=== PATIENT | female | born 1990 | race Caucasian/White ===

== ENCOUNTER 2021-04-16 11:23 | Outpatient (CLI) | payer BC, SELFPAY ==
--- NOTE | ~2021-04-16 | XR_ITS ---
EXAMINATION: XR chest 2V EXAM DATE: 04/16/2021 11:47 INDICATION: Cough. TECHNIQUE: Frontal and lateral projections of the chest obtained and reviewed. There is no prior ashvin dy for comparison. FINDINGS: There is subsegmental wedge-shaped region of left lower lobe airspace disease, could be at electasis but pneumonia not excludable. The lungs are otherwise clear. There are no pleural effusion s. The cardiomediastinal silhouette is within normal limits. There is no pneumothorax suspected. T he bones and soft tissues are unremarkable. IMPRESSION: Wedge-shaped subsegmental left lower lobe confluent airspace disease; clinical correlatio n. Reviewed, dictated and finalized at location B. GLE CUTTER IMPRESSION: Wedge-shaped subsegmental left lower lobe confluent airspace diseas e; clinical correlation.
== END 2021-04-16 11:24 | disposition home or self-care (01) ==
PROVIDERS: PCP Family Medicine; Visit Provider Family Medicine
DX: R05.9 Cough, unspecified (principal); R91.8 Other nonspecific abnormal finding of lung field
CPT/HCPCS: 71046

== ENCOUNTER 2022-02-25 13:48 | Emergency (ER) | payer BC, SELFPAY ==
--- NOTE | ~2022-02-25 | US_ITS ---
EXAMINATION: US OB follow up DATE: 02/25/2022 15:55 INDICATION: Abdominal cramping. TECHNIQUE: Real-time ultrasound of the pelvis was performed. COMPARISON: None. FINDINGS: There is a single living fetus in vertex presentation. The placenta is posterior. The cervical lengt h is normal on transabdominal images. heart rate is 146 beats per minute (bpm). The amniotic fl uid volume is subjectively normal. The ovaries are not visualized. The following biometric data were obtained: Biparietal diameter (BPD): 4.1 cm; head circumference (HC): 15.1 cm; abdominal circumference (AC): 14 .2 cm; femur length (FL): 2.6 cm. These measurements are discordant with HC/AC < 5th percentile. Estimated weight is 253 g +/- 38 g, which correlates with the 28th percentile when 07/22/22 is u sed as estimated date of delivery. As single measurements, these parameters are each equal to the following estimated gestational ages w ith ranges of +/- 2 standard deviations: BPD: 18 weeks 2 days. HC: 18 weeks 1 days. AC: 19 weeks 4 days. FL: 17 weeks 6 days. estimated gestational age based solely on measurements from this exam is 18 weeks 3 days +/- 1 weeks 2 days. IMPRESSION: 1. Single living fetus in vertex presentation. 2. Estimated weight is 253 g +/- 38 g, which correlates with the 28th percentile when 07/22/22 is used as estimated date of delivery. 3. Discordant biometrics with low HC/AC. Reviewed, dictated and finalized at location A. IMPRESSION: 1. Single living fetus in vertex presentation. 2. Estimated weight is 253 g +/- 38 g, which correlates with the 28th pe rcentile when 07/22/22 is used as estimated date of delivery. 3. Discordant biometrics with low HC/AC.
[2022-02-25 14:16] VITALS: BP 148/78; PULSE 99; RESP 18; TEMP 36.6; O2SAT 100
--- NOTE | 2022-02-25 15:24 | ED.ABDPAIN ---
HPI - Abdominal Pain General Chief Complaint: Abdominal Pain Stated Complaint: abd pain, 19 weeks pg Time Seen by Provider: 02/25/22 15:07 History of Present Illness HPI narrative: Patient is a 31-year-old female who is G3, P2, currently 19 weeks , here for evaluation of lower abdominal cramping over the past week. Patient states the pain is intermittent in nature, comes on without warning. She thought she was constipated, was taking MiraLAX daily and had no relief. Has also been taking Tylenol without significant relief of her pain. No fevers, chills, nausea, vomiting. Spoke with her [employer], Dr. Quevedo, who recommended ED eval. Related Data Allergies Allergy/AdvReac Type Severity Reaction Status Date / Time Penicillins Allergy Rash Verified 02/25/22 14:21 Review of Systems Review of Systems: Gen: Denies fevers or chills Eyes: Denies eye pain or visual change ENT: Denies congestion Respiratory: Denies shortness of breath or cough CV: Denies chest pain or palpitations GI: Reports lower abdominal pain. Denies nausea, emesis or diarrhea denies burning, urgency, frequency or hematuria Musculoskeletal: Denies back pain or muscle pain Neuro: Denies numbness, tingling, weakness or focal weakness Skin: Denies rash Except as documented, all other systems reviewed and negative [facility] Family History Family History (Updated 12/24/15 @ 14:13 by DOCTOR UNKNOWN) Father Hypertension Mother Hypertension Family history of seizure disorder Social History Social History Smoking status: Never smoker Alcohol intake: never Exam Narrative: APPEARANCE: Well appearing, no pain in distress, well-nourished. Head: Normocephalic and atraumatic. EYES: PERRLA/EOMI, conjunctivae clear NOSE: No nasal drainage EARS: External ear normal in appearance THROAT: Oropharynx is clear. Mucous membranes are moist. NECK: Supple. No adenopathy, no masses. RESPIRATORY: Airway patent, respirations nonlabored. Clear to auscultation bilaterally, no rales, rhonchi, wheezing. CARDIOVASCULAR: Regular rate and rhythm without murmurs, rubs, or gallops. ABDOMINAL: Gravid uterus. Normoactive bowel sounds. Soft, nontender, nondistended. No rebound tenderness or guarding. MUSCULOSKELETAL: Extremities are warm and well-perfused. Moves all extremities well. No edema. : NEURO: Normal speech. No focal neurologic deficits. SKIN: Skin is warm and dry. No rashes. PSYCHIATRIC: Normal affect/mood. Course Consultations Consultation #1: Spoke with Dr. Quevedo, patient's [employer], regarding patient's work-up here, will follow-up in office next week, gave return precautions to patient Vital Signs Vital signs: Vital Signs Temperature 97.8 F 02/25/22 14:16 Pulse Rate 99 02/25/22 14:16 Respiratory Rate 18 02/25/22 14:16 Blood Pressure 148/78 H 02/25/22 14:16 Pulse Oximetry 100 02/25/22 14:16 Temperature 97.1 F L 02/25/22 17:37 Pulse Rate 79 02/25/22 17:37 Respiratory Rate 18 02/25/22 17:37 Blood Pressure 159/92 H 02/25/22 17:37 Pulse Oximetry 97 02/25/22 17:37 MDM - Abdominal Pain MDM Narrative Medical decision making narrative: 31-year-old G3, P2 female who is currently 19 weeks here for evaluation of lower abdominal discomfort and cramping over the past week. No vaginal bleeding, suggestion fluids, pain that she likens to contractions. She is nontoxic-appearing and has no abdominal tenderness on exam, heart tones detected. Ultrasound shows a live IUP. She does have a leukocytosis to 13.3, unclear etiology of this. her urine is normal. Spoke with Dr. Quevedo, patient's [employer], who is comfortable with outpatient follow-up which I agree with as patient is nontoxic-appearing. Patient is agreeable to plan; we did discuss return precautions. Lab Data Result diagrams: 02/25/22 15:42 02/25/22 15:42 Labs: Lab Results 02/25/22 02/25/22 02/25/22 Range/Units 15:42 15:
[2022-02-25 15:48] LABS: Basophils Absolute Auto 0.1 K/mm3 (0.0-0.1); Basophils Percent Auto 0.4 % (0.2-1.2); Eosinophils Absolute Auto 0.1 K/mm3 (0-0.3); Eosinophils Percent Auto 0.6 % (0-4.4); Hematocrit 42.6 % (37.0-47.0); Hemoglobin 14.2 g/dL (12.0-15.0); Immature Granulocyte Absolute 0.08 K/mm3 (0.00-0.031); Immature Granulocyte Percent A 0.6 % (0-0.5); Lymphocytes Absolute Auto 1.77 K/mm3 (0.9-3.2); Lymphocytes Percent Auto 13.3 % (18.3-44.2); Mean Corpuscular HGB Conc 33.3 g/dl (32-36); Mean Corpuscular Hemoglobin 29.3 pg (26-34); Monocytes Absolute Auto 0.6 K/mm3 (0.1-0.6); Monocytes Percent Auto 4.2 % (2.6-8.5); Neutrophils Absolute Auto 10.8 K/mm3 (1.3-6.7); Neutrophils Percent Auto 80.9 % (45.5-73.1); Platelet Count Result 285 k/mm3 (150-375); Red Blood Count 4.84 M/mm3 (4.2-5.4); Red Cell Distribution Width 13.2 % (11.5-14.5); White Blood Count 13.3 K/mm3 (4.5-10.0)
[2022-02-25 16:00] LABS: Alanine Aminotransferase 19 U/L (6-35); Albumin Level 4.6 g/dL (3.5-5.1); Alkaline Phosphatase 109 U/L (38-126); Anion Gap 19 mmol/L (8-16); Aspartate Amino Transferase 19 U/L (14-36); Bilirubin,Total 0.4 mg/dL (0.2-1.3); Blood Urea Nitrogen 8 mg/dL (7-17); Calcium 9.9 mg/dL (8.4-10.2); Carbon Dioxide 20 mmol/L (22-30); Chloride 102 mmol/L (98-107); Estimated CRCL calculation 137 ml/min; Estimated Glomerular Filt Rate > 60; Glucose 82 mg/dL (65-110); Potassium 3.3 mmol/L (3.4-5.0); Sodium 141 mmol/L (137-145)
[2022-02-25 16:57] LABS: Add Urine Microscopic? NO; Appearance Urine Clear (Clear); Bilirubin Urine Negative (Negative); Blood Urine Negative (Negative); Color Urine Colorless (Yellow); Glucose Urine UA Negative (Negative); Ketones Urine Negative (Negative); Leukocyte Esterase Ur Negative LEU/UL (Negative); Nitrate Urine Negative (Negative); Protein Urine Negative (Negative); Urobilinogen Urine Negative mg/dL (<2.0)
[2022-02-25 17:04] LABS: Specific Grav Ur 1.002 (1.001-1.035)
[2022-02-25 17:37] VITALS: BP 159/92; PULSE 79; RESP 18; TEMP 36.2; O2SAT 97
[2022-02-25] MEDS: RHO(D) IMMUNE GLOBULIN 300 MCG/2 ML SYRINGE IM (17:42)
== END 2022-02-25 17:51 | disposition home or self-care (01) ==
PROVIDERS: Physician Assistant; Emergency Provider Emergency Medicine; PCP Student in an Organized Health Care Education/Training Program
DX: R10.30 Lower abdominal pain, unspecified (principal); O26.892 Other specified pregnancy related conditions, second trimester; Z3A.19 19 weeks gestation of pregnancy
CPT/HCPCS: 36415; 76816; 80053; 81003; 84702; 85025; 85461; 90384; 96372; 99284; J2790

== ENCOUNTER 2022-05-01 08:17 | Outpatient (RCR) | payer BC, SELFPAY ==
[2022-04-29 12:34] LABS: Hematocrit 37.8 % (37.0-47.0); Hemoglobin 12.5 g/dL (12.0-15.0)
[2022-04-29 12:47] LABS: Glucose 1 Hour PP 50gm Dose 139 mg/dL
[2022-04-29 13:30] LABS: HIV 1/2 Ab P24 Ag Result Negative (Negative)
[2022-05-01] MEDS: RHO(D) IMMUNE GLOBULIN 300 MCG/2 ML SYRINGE IM (14:04)
== END 2022-05-01 09:00 | disposition home or self-care (01) ==
LOC: ANHLAB 08:17
PROVIDERS: PCP Student in an Organized Health Care Education/Training Program; Visit Provider Advanced Practice Midwife
DX: Z11.4 Encounter for screening for human immunodeficiency virus [HIV] (principal); Z29.13 Encounter for prophylactic Rho(D) immune globulin; O36.0130 Maternal care for anti-D [Rh] antibodies, third trimester, not applicable or unspecified; Z3A.00 Weeks of gestation of pregnancy not specified
CPT/HCPCS: 36415; 82947; 85014; 85018; 85461; 86703; 86850; 86880; 86900; 86901; 90384; 96372; G0432; J2790

== ENCOUNTER 2022-05-27 16:39 | Outpatient (CLI) | payer BC, SELFPAY ==
[2022-05-27] VITALS (11 sets, daily range): BP systolic 115–123; BP diastolic 62–85; PULSE 74–89; BMI 42.9
[2022-05-27 17:56] LABS: Creatinine Urine 30.2 mg/dL; Total Protein Urine Random 7 mg/dL; Ur Ttl Prot Creatinine Ratio 0.23 mg/mg (0-0.20)
[2022-05-27 18:07] LABS: Basophils Percent Auto 0.4 % (0.2-1.2); Eosinophils Absolute Auto 0.1 K/mm3 (0-0.3); Eosinophils Percent Auto 1.2 % (0-4.4); Hematocrit 39.2 % (37.0-47.0); Hemoglobin 13.1 g/dL (12.0-15.0); Immature Granulocyte Absolute 0.05 K/mm3 (0.00-0.031); Immature Granulocyte Percent A 0.5 % (0-0.5); Lymphocytes Absolute Auto 1.64 K/mm3 (0.9-3.2); Lymphocytes Percent Auto 15.9 % (18.3-44.2); Mean Corpuscular HGB Conc 33.4 g/dl (32-36); Mean Corpuscular Hemoglobin 29.6 pg (26-34); Mean Corpuscular Volume 88.7 fl (80-100); Mean Platelet Volume 9.2 fl (7.4-10.4); Monocytes Absolute Auto 0.5 K/mm3 (0.1-0.6); Platelet Count Result 242 k/mm3 (150-375); Red Blood Count 4.42 M/mm3 (4.2-5.4); Red Cell Distribution Width 13.2 % (11.5-14.5); White Blood Count 10.3 K/mm3 (4.5-10.0)
[2022-05-27 18:10] LABS: Appearance Urine Clear (Clear); Bilirubin Urine Negative (Negative); Blood Urine Negative (Negative); Color Urine Yellow (Yellow); Glucose Urine UA Negative (Negative); Ketones Urine 2+ mg/dL (Negative); Leukocyte Esterase Ur Negative LEU/UL (Negative); Mucus Urine Rare /lpf; Nitrate Urine Negative (Negative); Protein Urine Negative (Negative); RBC Urine 0-2 /hpf (0-2); Specific Grav Ur 1.015 (1.001-1.035); Squamous Epithelial Cell Urine Occasional /hpf (Few); Urobilinogen Urine 0.2 mg/dL (<2.0); WBC Urine 0-3 /hpf; pH Urine 5.5 (5.0-9.0)
[2022-05-27 18:11] LABS: Add Urine Microscopic? YES
[2022-05-27 18:15] LABS: Alanine Aminotransferase 17 U/L (6-35); Albumin Level 3.3 g/dL (3.5-5.1); Alkaline Phosphatase 111 U/L (38-126); Anion Gap 7 mmol/L (8-16); Aspartate Amino Transferase 20 U/L (14-36); Bilirubin,Total 0.4 mg/dL (0.2-1.3); Blood Urea Nitrogen 10 mg/dL (7-17); Calcium 8.9 mg/dL (8.4-10.2); Carbon Dioxide 20 mmol/L (22-30); Chloride 109 mmol/L (98-107); Estimated CRCL calculation 182 ml/min; Estimated Glomerular Filt Rate > 60; Glucose 72 mg/dL (65-110); Potassium 3.8 mmol/L (3.4-5.0); Sodium 136 mmol/L (137-145); Uric Acid 4.4 mg/dL (2.5-7.5)
== END 2022-05-27 19:23 | disposition home or self-care (01) ==
LOC: ANHOBOP 16:45 → ANHOBPP 16:45
PROVIDERS: Advanced Practice Midwife; PCP Student in an Organized Health Care Education/Training Program; Visit Provider Obstetrics & Gynecology
DX: O13.9 Gestational [pregnancy-induced] hypertension without significant proteinuria, unspecified trimester (principal); Z3A.00 Weeks of gestation of pregnancy not specified
CPT/HCPCS: 36415; 59025; 80053; 81001; 82570; 84156; 84550; 85025; 99199

== ENCOUNTER 2022-07-01 05:37 | Inpatient (IN) | payer BC, SELFPAY ==
[2022-07-01] VITALS (109 sets, daily range): BP systolic 108–160; BP diastolic 46–107; PULSE 55–185; TEMP 36.3–36.6; O2SAT 96–100; BMI 43.5
[2022-07-01 07:20] LABS: Glucose Point of Care 78 mg/dl (65-105)
[2022-07-01 07:24] LABS: Basophils Percent Auto 0.2 % (0.2-1.2); Eosinophils Absolute Auto 0.1 K/mm3 (0-0.3); Eosinophils Percent Auto 1.2 % (0-4.4); Hematocrit 38.5 % (37.0-47.0); Hemoglobin 12.6 g/dL (12.0-15.0); Immature Granulocyte Absolute 0.04 K/mm3 (0.00-0.031); Immature Granulocyte Percent A 0.4 % (0-0.5); Lymphocytes Absolute Auto 1.59 K/mm3 (0.9-3.2); Lymphocytes Percent Auto 17.8 % (18.3-44.2); Mean Corpuscular HGB Conc 32.7 g/dl (32-36); Mean Corpuscular Hemoglobin 28.3 pg (26-34); Mean Corpuscular Volume 86.5 fl (80-100); Mean Platelet Volume 10.2 fl (7.4-10.4); Monocytes Absolute Auto 0.6 K/mm3 (0.1-0.6); Monocytes Percent Auto 6.6 % (2.6-8.5); Neutrophils Absolute Auto 6.6 K/mm3 (1.3-6.7); Neutrophils Percent Auto 73.8 % (45.5-73.1); Platelet Count Result 246 k/mm3 (150-375); Red Blood Count 4.45 M/mm3 (4.2-5.4); Red Cell Distribution Width 13.2 % (11.5-14.5); White Blood Count 8.9 K/mm3 (4.5-10.0)
[2022-07-01] MEDS: OXYTOCIN 30 UNITS/NS 500 ML 30 UNITS/500 ML BAG IV CONT (07:25)
[2022-07-01] MEDS: LACTATED RINGERS 1,000 ML 125 ML IV CONT ×2 (07:25→16:03)
[2022-07-01 07:43] LABS: Uric Acid 5.7 mg/dL (2.5-7.5)
--- NOTE | 2022-07-01 08:42 | WPDANESEPP ---
Anes - Eval Pre Procedure Procedure: labor pain management Date/Time: 07/01/22 08:42 Surgeon: Emy Preop Diagnosis: pain during labor Pre Op Diagnosis: IOL Patient Data Age: 31 Gender: F Height: 1.55 m Weight: 104.5 kg Last Vital Signs Temp 97.3 F L 07/01/22 08:00 Pulse 74 07/01/22 08:31 BP 139/71 07/01/22 08:31 O2 Del Method Room Air 07/01/22 06:49 Allergies Allergy/AdvReac Type Severity Reaction Status Date / Time bee venom protein (honey bee) Allergy Difficulty Verified 06/27/22 12:27 Breathing metoclopramide [From Reglan] Allergy Dizziness Verified 06/27/22 12:27 Penicillins Allergy Rash Verified 02/25/22 14:21 Home Medications Medication Instructions Recorded Confirmed Type aspirin 81 mg capsule 81 mg PO DAILY 05/27/22 07/01/22 History insulin NPH isoph U-100 human 100 14 unit subcut HS 05/27/22 07/01/22 History unit/mL subcutaneous suspension (Humulin N NPH U-100 Insulin (isophane susp)) vit no.95-ferrous 1 tablet PO DAILY 05/27/22 07/01/22 History fumarate 28 mg-folic acid 800 mcg tablet () Laboratory Tests 07/01/22 07/01/22 07/01/22 06:31 06:31 06:31 WBC 8.9 K/mm3 K/mm3 (4.5-10.0) RBC 4.45 M/mm3 M/mm3 (4.2-5.4) Hgb 12.6 g/dL g/dL (12.0-15.0) Hct 38.5 % % (37.0-47.0) MCV 86.5 fl fl (80-100) MCH 28.3 pg pg (26-34) MCHC 32.7 g/dl g/dl (32-36) RDW 13.2 % % (11.5-14.5) Plt Count 246 k/mm3 k/mm3 (150-375) MPV 10.2 fl fl (7.4-10.4) Immature Gran % (Auto) 0.4 % % (0-0.5) Neut % (Auto) 73.8 % H % (45.5-73.1) Lymph % (Auto) 17.8 % L % (18.3-44.2) Sierra % (Auto) 6.6 % % (2.6-8.5) Eos % (Auto) 1.2 % % (0-4.4) Baso % (Auto) 0.2 % % (0.2-1.2) Lymph # (Auto) 1.59 K/mm3 K/mm3 (0.9-3.2) Sierra # (Auto) 0.6 K/mm3 K/mm3 (0.1-0.6) Eos # (Auto) 0.1 K/mm3 K/mm3 (0-0.3) Baso # (Auto) 0.0 K/mm3 K/mm3 (0.0-0.1) Abs Immat Gran (auto) 0.04 K/mm3 H K/mm3 (0.00-0.031) Absolute Neuts (auto) 6.6 K/mm3 K/mm3 (1.3-6.7) Absolute Nucleated RBC 0.0 K/mm3 K/mm3 (0.0-0.012) Nucleated RBC % 0.0 % % (0.0-0.2) POC Capillary Glucose Uric Acid 5.7 mg/dL mg/dL (2.5-7.5) RPR Pending Blood Type Antibody Screen 07/01/22 07/01/22 06:31 07:12 WBC RBC Hgb Hct MCV MCH MCHC RDW Plt Count MPV Immature Gran % (Auto) Neut % (Auto) Lymph % (Auto) Sierra % (Auto) Eos % (Auto) Baso % (Auto) Lymph # (Auto) Sierra # (Auto) Eos # (Auto) Baso # (Auto) Abs Immat Gran (auto) Absolute Neuts (auto) Absolute Nucleated RBC Nucleated RBC % POC Capillary Glucose 78 mg/dl mg/dl (65-105) Uric Acid RPR Blood Type O Negative Antibody Screen Pending Patient hx anesthesia problems: none Family hx anesthesia problems: none Results Review: All pre-operative results and documents have been reviewed as part of the pre-operative evaluation. [facility] Past Medical History Medical History Morbid obesity with BMI of 40.0-44.9, adult Family History Family History Father Hypertension Mother Hypertension Family history of seizure disorder Social History Social History Smoking status: Never smoker Alcohol intake: never Substance use: never Lack of Transportation: No Lack of Food: Never True Current Hous
[2022-07-01 09:16] LABS: Glucose Point of Care 130 mg/dl (65-105)
--- NOTE | 2022-07-01 10:07 | WPDHPUPDATE1 ---
History and Physical Update Update Date/Time: 07/01/22 10:07 31-year-old female, multiparous, who presents for medical induction of labor. Artificial rupture membranes was performed. Fluid clear. Cervix is 3 cm 50% and -2 station. There is reassuring heart tones. Expectant management will be continued. History and Physical has been reviewed, including an updated exam of the patient. There are NO changes in the patient's condition. Risks, benefits, and alternatives have been discussed and questions answered. Patient agrees to proceed with procedure.
[2022-07-01 11:57] LABS: Rapid Plasma Reagin Non-Reactive (NonReactive)
[2022-07-01] MEDS: fentaNYL CITRATE INJ (*CRX) 100 MCG/2 ML VIAL 50 MCG IV PUSH ×2 (13:12→16:04)
[2022-07-01 14:11] LABS: Glucose Point of Care 77 mg/dl (65-105)
[2022-07-01 16:15] LABS: Glucose Point of Care 72 mg/dl (65-105)
[2022-07-01 18:17] LABS: Glucose Point of Care 69 mg/dl (65-105)
--- NOTE | 2022-07-01 20:38 | P.PCNOB_ITS ---
OB - Delivery Note Procedure Delivery date: 07/01/22 Procedure: Induction method: AROM and Per Pitocin Protocol Delivery monitor: External FHT and External Uterine Route of delivery: Laceration Description: Perineal - 2nd Degree Delivery repair: vicryl Quantitative Blood Loss (ml): 350 Anesthesia type: Epidural Disposition: Floor [place] Baby Date of : 07/01/22 Time of : 20:12 Weeks of gestation at delivery: 39 Infant gender: Male Weight (pounds): 6 Weight (ounces): 12 Placenta delivery description: Spontaneous Cord Vessel Description: 3 Vessels score one minute: 8 score five minutes: 9
[2022-07-01] MEDS: OXYTOCIN 30 UNITS/NS 500 ML 30 UNITS/500 ML BAG 125 UNITS IV CONT (20:56)
--- NOTE | 2022-07-01 22:12 | PM.GYNPNOP ---
[employer] - A/P Time Spent With Patient Time: Total time spent is greater than 50% in coordination of care (as documented) at patient's floor/unit and/or counseling patient: Time with patient: less than 15 minutes [employer] CH[employer]ER- PN:Mechelle Post-Op Subjective Date/time seen: 07/01/22 22:12 Uterine exploration manually. Small number of clots were removed. Some very small clots remained at the very most fundal aspect of the intrauterine cavity. no excessive bleeding at this time. [employer] CH[employer]ER - PN: Obj Data Vital Signs Vital Signs: Vital Signs - 24 hr 07/01/22 06:49 07/01/22 07:33 07/01/22 07:46 Temperature Pulse Rate 68 70 Blood Pressure 129/78 135/82 Pulse Oximetry Oxygen Delivery Room Air 07/01/22 08:01 07/01/22 08:00 07/01/22 08:16 Temperature 97.3 F L Pulse Rate 71 68 Blood Pressure 134/80 138/76 Pulse Oximetry Oxygen Delivery 07/01/22 08:31 07/01/22 08:46 07/01/22 09:01 Temperature Pulse Rate 74 62 63 Blood Pressure 139/71 134/65 129/79 Pulse Oximetry Oxygen Delivery 07/01/22 09:55 07/01/22 10:01 07/01/22 10:17 Temperature Pulse Rate 64 65 55 L Blood Pressure 146/78 H 135/64 110/65 Pulse Oximetry Oxygen Delivery 07/01/22 10:31 07/01/22 10:46 07/01/22 11:01 Temperature Pulse Rate 67 57 L 66 Blood Pressure 120/72 122/66 132/73 Pulse Oximetry Oxygen Delivery 07/01/22 11:16 07/01/22 11:32 07/01/22 11:46 Temperature Pulse Rate 78 58 L 59 L Blood Pressure 121/79 123/76 121/107 H Pulse Oximetry Oxygen Delivery 07/01/22 14:05 07/01/22 12:01 07/01/22 14:47 Temperature 97.4 F L Pulse Rate 65 73 Blood Pressure 147/64 H 115/49 L Pulse Oximetry Oxygen Delivery 07/01/22 14:00 07/01/22 16:34 07/01/22 16:35 Temperature 97.5 F L Pulse Rate 62 Blood Pressure 160/83 H Pulse Oximetry 98 Oxygen Delivery 07/01/22 16:39 07/01/22 16:42 07/01/22 16:43 Temperature Pulse Rate 60 Blood Pressure 158/71 H Pulse Oximetry 99 100 Oxygen Delivery 07/01/22 16:43 07/01/22 16:45 07/01/22 16:47 Temperature Pulse Rate 67 68 Blood Pressure 141/71 H 134/65 Pulse Oximetry 100 Oxygen Delivery 07/01/22 16:48 07/01/22 16:49 07/01/22 16:51 Temperature Pulse Rate 69 81 Blood Pressure 133/70 140/64 Pulse Oximetry 100 Oxygen Delivery 07/01/22 16:53 07/01/22 16:56 07/01/22 16:57 Temperature Pulse Rate 86 81 68 Blood Pressure 123/65 109/59 L 120/51 L Pulse Oximetry 100 Oxygen Delivery 07/01/22 16:58 07/01/22 16:59 07/01/22 17:01 Temperature Pulse Rate 66 75 Blood Pressure 118/54 L 114/71 Pulse Oximetry 99 Oxygen Delivery 07/01/22 17:03 07/01/22 17:05 07/01/22 17:07 Temperature Pulse Rate 64 110 H 126 H Blood Pressure 117/57 L 122/65 113/63 Pulse Oximetry 100 Oxygen Delivery 07/01/22 17:08 07/01/22 17:09 07/01/22 17:11 Temperature Pulse Rate 71 185 H Blood Pressure 129/60 135/77 Pulse Oximetry 100 Oxygen Delivery 07/01/22 17:13 07/01/22 16:00 07/01/22 10:00 Temperature 97.6 F 97.4 F L Pulse Rate Blood Pressure Pulse Oximetry 100 Oxygen Delivery 07/01/22 17:18 07/01/22 17:21 07/01/22 17:23 Temperature Pulse Rate 63 Blood Pressure 125/59 L Pulse Oximetry 100 100 Oxygen Delivery 07/01/22 17:28 07/01/22 17:33 07/01/22 17:38 Temperature Pulse Rate Blood Pressure Pulse Oximetry 100 100 100 Oxygen Delivery 07/01/22 17:43 07/01/22 17:46 07/01/22 17:48 Temperature Pulse Rate 78 Blood Pressure 136/74 Pulse Oximetry 100 100 Oxygen Delivery 07/01/22 17:53 07/01/22 17:58 07/01/22 18:02 Temperature Pulse Rate 87 Blood Pressure 127/46 L Pulse Oximetry 100 100 Oxygen Delivery 07/01/22 18:03 07/01/22 18:08 07/01/22 18:13 Temperature Pulse Rate Blood Pressure Pulse Oximetry 100 100 100 Oxygen Delivery 07/01/22 18:17 07/01/22 18:18
--- NOTE | 2022-07-01 23:05 | PC.NURSE ---
Patient transferred to post room #287 per wheelchair from labor and delivery. Support person present. Oriented to unit, room, information board, rooming in, admission packet and security measures. Patient verbalizes understanding.
[2022-07-02] VITALS (7 sets, daily range): BP systolic 115–141; BP diastolic 55–75; PULSE 60–80; RESP 14–18; TEMP 36.4–37.3; O2SAT 97–100
[2022-07-02] MEDS: IBUPROFEN 600 MG TABLET PO ×3 (05:32→21:34)
--- NOTE | 2022-07-02 08:10 | PM.OBPNVD ---
OB - PN: Subj Subjective Date/time seen: 07/02/22 08:10 Patient comments: no complaints, pain well controlled, incisional pain, tolerating diet and flatus present OB - PN: Obj Data Labs 07/01/22 06:31 Labs: Laboratory Results - last 24 hr 07/01/22 07/01/22 07/01/22 06:31 06:31 09:13 POC Capillary Glucose 130 H RPR Non-reactive Blood Type O Negative Antibody Screen Positive Antibody Identification Inconclusive Antigen Identification Cancelled SEVEN, IgG Interpret Not Performed SEVEN, Poly Interpret Negative SEVEN, Complement Interp Not Performed 07/01/22 07/01/22 07/01/22 14:03 16:11 18:14 POC Capillary Glucose 77 72 69 RPR Blood Type Antibody Screen Antibody Identification Antigen Identification SEVEN, IgG Interpret SEVEN, Poly Interpret SEVEN, Complement Interp OB - PN A/P Plan day: 1 Plan: routine care Comments: No problems, routine care Time Spent With Patient Time: Total time spent is greater than 50% in coordination of care (as documented) at patient's floor/unit and/or counseling patient: Exam Const: General: comfortable, no acute distress and alert Resp: Effort & Inspection: normal respiratory effort Auscultation: no crackles, no rales and no rhonchi Cardio: Rate: regular rate Heart sounds: no click, no murmurs and no rubs GI: Inspection: non-distended GI Palp: No Tenderness to palpation present (GI) Auscultation: normal bowel sounds Other: Incision - CDI Extrem: General: normal to inspection, no pedal edema and no calf tenderness
[2022-07-02] MEDS: MULTIVIT/MIN/PREN/FOL AC/IRON TABLET 1 TAB PO (08:53)
[2022-07-02 09:02] LABS: Hematocrit 28.1 % (37.0-47.0); Hemoglobin 9.2 g/dL (12.0-15.0)
[2022-07-02 09:11] LABS: Alanine Aminotransferase 16 U/L (6-35); Albumin Level 2.7 g/dL (3.5-5.1); Alkaline Phosphatase 100 U/L (38-126); Anion Gap 3 mmol/L (8-16); Aspartate Amino Transferase 21 U/L (14-36); Bilirubin,Total 0.4 mg/dL (0.2-1.3); Blood Urea Nitrogen 6 mg/dL (7-17); Calcium 7.9 mg/dL (8.4-10.2); Carbon Dioxide 22 mmol/L (22-30); Chloride 107 mmol/L (98-107); Estimated CRCL calculation 151 ml/min; Estimated Glomerular Filt Rate > 60; Glucose 83 mg/dL (65-110); Potassium 4.1 mmol/L (3.4-5.0); Sodium 132 mmol/L (137-145)
--- NOTE | 2022-07-02 10:24 | WPDANLDPN2 ---
Anes-Prog Note L&D Date/Time: 07/02/22 10:24 Comfortable throughout: labor and delivery Neuraxial method: epidural Epidural/Spinal procedure site: clean & non-tender Neuro status: Neuro function grossly intact. Cardiovascular status: normal Respiratory status: normal Airway patency: baseline Mental status: baseline Post-Op hydration status: normal Vital Signs: Last Vital Signs Temp 99.2 F 07/02/22 07:40 Pulse 70 07/02/22 07:40 Resp 16 07/02/22 07:40 BP 125/65 07/02/22 07:40 Pulse Ox 99 07/02/22 07:40 O2 Del Method Room Air 07/01/22 06:49 Pain score (VAS): 0 I/O: Intake & Output 07/01/22 07/02/22 07/02/22 23:59 07:59 15:59 Intake Total 1500 Output Total 1000 1000 Balance -1000 500 Post-procedural complaints: none Patient feedback: Patient satisfied with anesthetic care.
[2022-07-02] MEDS: RHO(D) IMMUNE GLOBULIN 300 MCG/2 ML SYRINGE IM (11:14)
[2022-07-02] MEDS: POLYSACCHARIDE IRON COMPLEX 150 MG CAPSULE PO ×2 (11:14→16:27)
[2022-07-02] MEDS: DOCUSATE SODIUM 100 MG CAPSULE PO ×2 (11:14→16:27)
[2022-07-02] MEDS: WITCH HAZEL 40 PADS 1 PAD TOPICAL (12:07)
--- NOTE | 2022-07-02 14:14 | PC.NURSE ---
[id number] Introductions were made, then consulted with patient to assess needs related to . Mother led the conversation with her?plans to feed?her infant and the?experience so far. Mother states she attempted to breastfeed twice in the recovery room and was unsuccessful and has been bottle feeding with formula and not putting her to breast. We reviewed the risk and benefits of nipple shield use and it can be a tool to teach infant to open wide or help transition from bottle to breast. Reviewed there is to be no pain with pumping, pumping schedule for milk production, collection, frequency rather than increasing pumping power, how to find the pump setting that is comfortable for adequate stimulation and storage of human milk. Parents are encouraged to record pumping schedule on the feeding sheet. Patient was assessed for correct placement, flange size, to pump for comfort and nipple stretching/stimulation for adequate milk production every 3 hours (8 times in 24 hours) 1-2 times at night. Encouraged skin to skin and discussed the feeding behaviors and challenges with a late infant. Resources provided for inpatient and outpatient services with the feeding sheet, mom/baby guide and name written on the white board. Mother voiced understanding of information and will call if there is a request for assistance. Reported to the primary RN.
[2022-07-02] MEDS: ACETAMINOPHEN 325 MG TABLET 650 MG PO (16:27)
[2022-07-03 05:00] VITALS: BP 138/79; PULSE 73; RESP 17; TEMP 36.4; O2SAT 99
[2022-07-03 07:45] VITALS: BP 124/75; PULSE 81; RESP 18; TEMP 36.3; O2SAT 99
--- NOTE | 2022-07-03 08:08 | PM.OBPNVD ---
OB - PN: Subj Subjective Date/time seen: 07/03/22 08:08 Patient comments: no complaints, pain well controlled and tolerating diet OB - PN: Obj Data Labs 07/02/22 08:48 07/02/22 08:48 Labs: Laboratory Results - last 24 hr 07/02/22 07/02/22 07/02/22 08:48 08:48 08:48 Hgb 9.2 L D Hct 28.1 L Sodium 132 L Potassium 4.1 Chloride 107 Carbon Dioxide 22 Anion Gap 3 L BUN 6 L Creatinine 0.50 L Estim Creat Clear Calc 151 Estimated GFR > 60 Glucose 83 Calcium 7.9 L Total Bilirubin 0.4 AST 21 ALT 16 Alkaline Phosphatase 100 Total Protein 5.0 L Albumin 2.7 L Blood Type O Negative Antibody Screen TNP Screen Negative Baby's Blood Type O pos Baby's SEVEN Negative Doses of RhIg Required 1 OB - PN A/P Plan day: 2 Plan: routine care and discharge home Time Spent With Patient Time: Total time spent is greater than 50% in coordination of care (as documented) at patient's floor/unit and/or counseling patient: Exam Const: General: comfortable and no acute distress Resp: Effort & Inspection: normal respiratory effort Auscultation: no rales, no rhonchi and no wheezes Cardio: Rate: regular rate Heart sounds: no click, no murmurs and no rubs GI: GI Palp: Yes Soft to palpation and No Tenderness to palpation present (GI) Auscultation: normal bowel sounds Extrem: General: normal to inspection, no pedal edema and no calf tenderness
--- NOTE | 2022-07-03 08:09 | PM.OBDSVD ---
DS: Admitting Diagnosis Discharge Date 07/03/22 Admitting Diagnosis term OB - DS: Summary OB Procedures : None OB Procedures Intrapartum: Spontaneous Vag Delivery OB Procedures: : None Time Spent with Patient Time attestation: Total time spent providing and/or coordinating discharge services: DS: Data Data Completed and Pending Labs on day of discharge: Labs from last 24 hours 07/02/22 07/02/22 07/02/22 08:48 08:48 08:48 Hgb 9.2 L D Hct 28.1 L Sodium 132 L Potassium 4.1 Chloride 107 Carbon Dioxide 22 Anion Gap 3 L BUN 6 L Creatinine 0.50 L Estim Creat Clear Calc 151 Estimated GFR > 60 Glucose 83 Calcium 7.9 L Total Bilirubin 0.4 AST 21 ALT 16 Alkaline Phosphatase 100 Total Protein 5.0 L Albumin 2.7 L Blood Type O Negative Antibody Screen TNP Screen Negative Baby's Blood Type O pos Baby's SEVEN Negative Doses of RhIg Required 1 Discharge Plan Discharge Discharging Clinician: Carrie Quevedo Patient Disposition: Home, Self-Care Activity: pelvic rest Diet: regular Patient Instructions: Antibiotic Form Stand Alone Forms: General Discharge Information Follow-up/Referrals: Carrie Quevedo MD [Physician] - Discharge Medications: Continued Humulin N NPH U-100 Insulin 100 unit/mL suspension 14 unit SUBCUT HS PNV cmb#95-ferrous fumarate-FA [] 28 mg iron- 800 mcg Tablet 1 tablet PO DAILY aspirin 81 mg Capsule 81 mg PO DAILY Date of admission: 07/01/22 05:37 Primary Care Provider: Svetlana,Mario Admitting Provider: Carrie Quevedo Attending physician on admission: Carrie Quevedo Condition: Stable
[2022-07-03] MEDS: POLYSACCHARIDE IRON COMPLEX 150 MG CAPSULE PO (08:10)
[2022-07-03] MEDS: IBUPROFEN 600 MG TABLET PO (08:11)
[2022-07-03] MEDS: DOCUSATE SODIUM 100 MG CAPSULE PO (08:11)
[2022-07-03] MEDS: MULTIVIT/MIN/PREN/FOL AC/IRON TABLET 1 TAB PO (08:11)
--- NOTE | 2022-07-03 09:51 | PC.NURSE ---
Patient viewed the discharge video Mother [facility] Baby [facility], The First Two Weeks . Patient was given the opportunity and encouraged to ask questions. Patient verbalized understanding of information shared and has been given the mother/baby guide for home reference.
[2022-07-06 10:35] VITALS: BP 140/90; PULSE 84; RESP 20; TEMP 36.4; O2SAT 98
== END 2022-07-03 10:45 | disposition home or self-care (01) | DRG 807 ==
LOC: ANHLDR 05:46 → ANHOB2 23:08
PROVIDERS: Admitting Provider Obstetrics & Gynecology; PCP Student in an Organized Health Care Education/Training Program; Visit Provider Obstetrics & Gynecology
DX: O13.4 Gestational [pregnancy-induced] hypertension without significant proteinuria, complicating childbirth (principal); Z37.0 Single live birth; Z3A.37 37 weeks gestation of pregnancy; O70.1 Second degree perineal laceration during delivery; O24.429 Gestational diabetes mellitus in childbirth, unspecified control
CPT/HCPCS: 36415; 80053; 82948; 84550; 85014; 85018; 85025; 85461; 86592; 86850; 86880; 86900; 86901; 90384; A9270; J2590; J2790; J2795; J3010; J7120

== ENCOUNTER 2023-12-15 01:28 | Day surgery (SDC) | payer BC, SELFPAY ==
--- NOTE | 2023-12-08 16:31 | PC.NURSE ---
Report to the Outpatient Waiting Room, entrance under the green pavilion located off [facility], at time 0830 on date 12/15/23. Planned Procedure Time: 1030. Time changes happen often and if your time is changed the preop area will call you the afternoon before. - You and your visitor will be asked to self-screen and do not enter if you have any COVID symptoms. - A mask is optional within the hospital at this time. Patients may have clear liquids (water, carbonated beverages, clear teas, apple juice) until 3 hours prior to surgery with a maximum of 20 ounces. 0730 - No food from midnight until time of surgery - Infants may have breast milk until 4 hours before surgery, formula 6 hours prior to surgery. - Children will be allowed to drink immediately following surgery. If applicable, please bring a bottle or sippy cup to assist with drinking. Juice, water, soda, and popsicles are readily available. For infants on formula, please bring formula the day of surgery. Pacifiers are allowed. Take the following medications with a SIP of water the morning of surgery: Lexapro DO NOT STOP ANY OF YOUR OTHER PRESCRIPTION MEDICATIONS PRIOR TO SURGERY ?EXCEPT THE FOLLOWING Medications to discontinue per physician N/A Date to take last dose N/A Please no make-up, nail australian, hairspray, perfume, deodorant, or body powder the day of surgery. No jewelry (including any body piercings) or valuables the day of surgery, leave them at home. Please take a shower or bath the night before, or the morning of, surgery with an antibacterial soap. Wear comfortable, loose fitting clothing. Children are encouraged to wear pajamas. - Jewelry must be removed prior to entering the operating room. Rings and piercings that are not removed may be cut off. - The hospital will not accept responsibility for valuables. - Please leave all valuables, including medications, at home the day of surgery. If you are going home after surgery, a licensed refrigerated national truck driver must drive you home. - NO public transportation without another adult if you receive anesthesia. - We recommend that an adult stay with you for 24 hours following discharge. - We also recommend that you do not drive, make important decision, drink alcoholic beverages, or take any drugs that were not prescribed by your health care provider for at least 24 hours after your discharge time. For Pediatric surgeries, we recommend two adults accompany the child home. Follow any additional instructions given to you from your surgeon. If you or anyone in your household have experienced Covid symptoms in the past week, please notify your surgeon or the nurse liaison at the phone number below for possible testing. Telephone instructions given to Patient- Abner Jackson and asked if any additional questions and then verbalized understanding. Patient advised to call surgeon office or pre surgery nurse liaison [phone] if any additional questions.
[2023-12-08 16:37] VITALS: BMI 33.7
[2023-12-15] VITALS (8 sets, daily range): BP systolic 116–141; BP diastolic 71–91; PULSE 62–109; RESP 12–18; TEMP 36.3–36.5; O2SAT 94–100; BMI 32.1
[2023-12-15] MEDS: LACTATED RINGERS 1,000 ML 30 ML IV CONT ×2 (08:46→12:35)
[2023-12-15] MEDS: KETOROLAC 15 MG/ML VIAL (*BKC) IV PUSH (08:47)
[2023-12-15] MEDS: ACETAMINOPHEN 500 MG TABLET 1000 MG PO (08:47)
[2023-12-15 08:48] LABS: BEDSIDEPREGUCG Negative
--- NOTE | 2023-12-15 10:26 | P.PNAN_ITS ---
Anes - Initial Pre Proc Eval Procedure: Operation Date: 12/15/23 10:00 Proposed Procedures p Laparoscopic Bilateral Salpingectomy - Zach Quevedo MD Date/Time: 12/15/23 10:26 Surgeon: Zach Quevedo MD Pre Op Diagnosis: female sterilization Patient Data Age: 33 Gender: F Height: 1.55 m Weight: 77.05 kg Last Vital Signs Temp 36.5 C 12/15/23 08:41 Pulse 91 12/15/23 08:41 Resp 16 12/15/23 08:41 BP 141/91 H 12/15/23 08:41 Pulse Ox 100 12/15/23 08:41 Allergies Allergy/AdvReac Type Severity Reaction Status Date / Time bee venom protein (honey bee) Allergy Difficulty Verified 12/08/23 16:25 Breathing metoclopramide [From Reglan] Allergy Dizziness Verified 12/08/23 16:25 Penicillins Allergy Rash Verified 12/08/23 16:25 Home Medications Medication Instructions Recorded Confirmed Type escitalopram oxalate 20 mg tablet 10 mg PO DAILY 12/08/23 12/08/23 History Laboratory Tests 12/15/23 08:41 POC Urine HCG, Qual Negative POC Ur Preg QC Yes Patient hx anesthesia problems: none Family hx anesthesia problems: none Results Review: All pre-operative results and documents have been reviewed as part of the pre- operative evaluation. [facility] Past Medical History Medical History (Updated 12/15/23 @ 10:27 by Clif Khan MD) Anxiety Obesity Family History Family History Father Hypertension Mother Hypertension Family history of seizure disorder Social History Social History Smoking status: Never smoker Alcohol intake: never Substance use: never Lack of Transportation: No Lack of Food: Never True Current Housing: I Have Housing Concerned About Future Housing: No Difficulty Paying Gas/Electric Bills: No Difficulty Paying for Meds: No Currently Unemployed: No Education: High School Diploma/GED Difficulty w/ Childcare or Family Care: No Spiritual care concerns: No Anes - Eval Final PreProcedure Day of Procedure 12/15/23 10:26 Patient weight: obese Heart: regular rate and rhythm Lungs: clear to auscultation Airway: Mallampati scale class 1 Neurological: alert and oriented Last oral intake: >/= 8 hours ASA classification: II Emergent: no Anesthetic plan: proceed Anesthesia type and monitoring: general ETT Results Review: All pre-operative results and documents have been reviewed as part of the pre- operative evaluation. Informed Consent: The patient's anesthetic plan and its attendant risks and benefits were discussed with the patient/family/POA. Questions were solicited and answers provided to the satisfaction of the patient/family/POA.
--- NOTE | 2023-12-15 10:59 | PM.IMHP ---
H&P: HPI History of Present Illness Date/Time: 12/15/23 10:59 Chief Complaint: female sterilization Narrative: 33-year-old female who presents for female sterilization. She desires female sterilization. We have agreed to perform laparoscopic bilateral salpingectomy. The patient understands the details of the procedure. The procedure has been explained in detail. She understands the risks. She understands that injuries may occur that result in hospitalization, more surgery, and severe illness. She understands risk of hemorrhage and infection. She denies any chest pain or shortness of breath. She denies any nausea, vomiting, fever, chills. Review of Systems Review of Systems: All systems reviewed & are unremarkable except as noted in HPI and below Constitutional: Constitutional: Denies chills, Denies fatigue, Denies fever(s) and Denies weakness Eyes: Eyes: Denies blurry vision, Denies change in vision, Denies loss of peripheral vision, Denies loss of vision, Denies other visual disturbances and Denies eye pain ENT: Denies vertigo, Denies dizziness, Denies hearing loss, Denies mouth pain, Denies nasal obstruction, Denies neck mass and Denies neck pain Cardiovascular: Cardiovascular: Denies chest pain, Denies diaphoresis, Denies syncope, Denies leg edema and Denies dyspnea Respiratory: Respiratory: Denies chest congestion, Denies cough, Denies hemoptysis, Denies dyspnea and Denies wheezing Gastrointestinal: Gastrointestinal: Denies abdominal pain, Denies constipation, Denies diarrhea, Denies nausea and Denies vomiting Genitourinary: Genitourinary: Denies hematuria, Denies change in libido, Denies nocturia, Denies genital lesions, Denies flank pain and Denies urinary urgency Musculoskeletal: Musculoskeletal: Denies abnormal gait, Denies back pain, Denies myalgias, Denies arthralgias, Denies joint swelling, Denies muscle weakness and Denies neck pain Integumentary/Breasts: Skin/Breast: Denies swelling, Denies breast pain, Denies breast mass, Denies dry skin, Denies nipple discharge, Denies unusual bruising and Denies jaundice Neurologic: Denies Neuro-related abnormal movements, Denies Abnormal speech present, Denies abnormal gait, Denies behavioral changes, Denies confusion, Denies vertigo, Denies dizziness, Denies syncope, Denies loss of vision, Denies memory loss, Denies convulsions and Denies weakness Psychiatric: Psychiatric: Denies abnormal sleep pattern, Denies behavioral changes, Denies change in libido, Denies confusion, Denies depression, Denies anhedonia and Denies memory loss Endocrine: Endocrine: Reports no additional endocrine complaints, Denies change in libido and Denies fatigue Hematologic/Lymphatic: Hematologic/Lymphatic: Reports no additional hematologic/lymphatic complaints Allergic/Immunologic: Allergic/Immunologic: Reports no additional allergic/immunologic complaints and Denies wheezing PMFSH Past Medical History Medical History (Updated 12/15/23 @ 11:01 by Zach Quevedo MD) Anxiety Obesity Family History Family History Father Hypertension Mother Hypertension Family history of seizure disorder Social History Social History Smoking status: Never smoker Alcohol intake: never Substance use: never Lack of Transportation: No Lack of Food: Never True Current Housing: I Have Housing Concerned About Future Housing: No Difficulty Paying Gas/Electric Bills: No Difficulty Paying for Meds: No Currently Unemployed: No Education: High School Diploma/GED Difficulty w/ Childcare or Family Care: No Spiritual care concerns: No Meds Home Medications and Allergies Home Medications Medication Instructions Recorded Confirmed Type escitalopram oxalate 20 mg tablet 10 mg PO DAILY 12/08/23 12/08/23 History Allergies Allergy/AdvReac Type Severity Reaction Statu
--- NOTE | 2023-12-15 11:02 | WPDHPUPDATE1 ---
History and Physical Update Update Date/Time: 12/15/23 11:02 History and Physical has been reviewed, including an updated exam of the patient. There are NO changes in the patient's condition. Risks, benefits, and alternatives have been discussed and questions answered. Patient agrees to proceed with procedure.
--- NOTE | 2023-12-15 12:13 | P.OP_ITS ---
Procedure Note - Detailed Date of Procedure 12/15/23 Pre-op Diagnosis female sterilization Post-op Diagnosis Same Procedure Performed Laparoscopic bilateral salpingectomy Surgeon Zach Quevedo MD Anesthesia General Indications Unwanted fertility Findings Normal pelvic anatomy Description of Procedure The patient was taken the operating room. She was prepped and draped in the dorsal lithotomy position after induction of general anesthesia. A 5 mm skin incision was made in the left upper quadrant of the abdominal skin. A 5 mm trocar was inserted the intra-abdominal cavity under direct visualization of the scope. Pneumoperitoneum was achieved. A 5 mm trocar was inserted in the left lower quadrant identical fashion. A 5 mm infraumbilical trocar was inserted in identical fashion as well. The bilateral fallopian tubes were removed. This was done by using a LigaSure cautery. The mesosalpinx adjacent to the tube was cauterized transected with LigaSure. This was initiated in the area the ovary and in a stepwise fashion moved medially to the area of the cornu of the uterus. Once there the fallopian tube was cauterized and transected. This was done in identical fashion on each side. The fallopian tubes were taken out through the left lower quadrant trocar site. The pneumoperitoneum was reduced. The trocars removed. The skin was closed with subcuticular 4 Monocryl and covered with De rmabond. She was taken to cover stable condition. Sponge lap and needle counts were correct x2. Estimated Blood Loss 5 Drains No Packing No Pathology Yes Complications No immediate complications Condition Stable Disposition PACU
[2023-12-15] MEDS: fentaNYL CITRATE INJ (*CRX) 100 MCG/2 ML VIAL 25 MCG IV PUSH ×2 (12:37→12:41)
[2023-12-15] MEDS: oxyCODONE HCL (*CRX) 5 MG TAB IR PO (13:50)
== END 2023-12-15 14:30 | disposition home or self-care (01) ==
PROVIDERS: PCP Student in an Organized Health Care Education/Training Program; Visit Provider Obstetrics & Gynecology
PROC: (CPT 49320; principal; 2023-12-15 10:00)
DX: Z30.2 Encounter for sterilization (principal); D41.9 Neoplasm of uncertain behavior of unspecified urinary organ; E66.9 Obesity, unspecified; Z68.32 Body mass index [BMI] 32.0-32.9, adult
CPT/HCPCS: 58661; 88302; A9270; J1100; J1885; J2250; J2405; J2704; J3010; J7030; J7120